=== PATIENT | female | born 1990 ===

== ENCOUNTER 2017-08-03 18:38 | Emergency (ER) | payer OTHER ==
--- NOTE | 2017-08-03 19:34 | OBHP ---
Datetime: 08/03/2017 19:28 IP Adm Impression: , intrauterine IP Admit Plan: Discharge home Admit Comment, IP Provider: @ 32.5 wks GA MARILEE 09/23/17 reports vaginal discharge watery, no odor x 3 days, no gross spurts, no odor, no itching,no ctx, lof, vb, +FM. Pt denies any dysuira, urgency, frequency, constiatoin, diarrhea. 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: denies hx of fibroids, ovairan cyst, STI PMH: siezure disorder (last seizure 2 years ago in [place]) PSH: denies MEDS: levicetraecm, pnv, folic acid SHX: negatieve x 3 NKDA VSS PE: see above EFM: Cat I TOCO: Irritablity A/P @ 32.5 wks GA with physiologic leukorrhea -if increased call me, if itching, odor: BV Rx metrogel -f/u Thrusday for US, office witin 1 week - labor precations given Pelvic Type - PN: Adequate Extremities - PN: Normal Abdomen - PN: Normal Back - PN: Normal Breast - PN: Not Done Lungs - PN: Normal Heart - PN: Normal Thyroid - PN: Not Done Neurologic - PN: Normal HEENT - PN: Normal General - PN: Normal Presentation-Admit: vtx FHR - Baseline A Provider: 135 Membranes, Provider: Intact Comments, ACOG Physical Exam: SSE: External Genitalia: no gross abnormalites Vagina; minimal white phyisiolgic discharge, no gross pooling, negative nitrazine Cervix: /-3 VTX intact Uterus; non tender, no papblet ctx Back No CVA, non tendern b/l Gestation - Est Wks by US: 32.5 IP Hx Assessment: The History has been Reviewed and is Current Vital Signs Provider: Reviewed; Within Normal Limits IP Chief Complaint: Other NICHD Variability Prov Fetus A: Moderate 6-25bpm NICHD Accel Fetus A IP Provider: 15X15 FHR Category Provider Fetus A: Category I NICHD Decel Fetus A IP Provider: None Dilatation, Provider: FT Effacement, Provider: 50 Station, Provider: -3 Genitourinary Exam: Normal DTRs - PN: Normal
[2017-08-04 00:10] VITALS: PULSE 98; O2SAT 99
== END 2017-08-03 19:45 | disposition home or self-care (01) ==
LOC: C.EROB 18:38
DX: O26.893 Other specified pregnancy related conditions, third trimester (principal); Z3A.32 32 weeks gestation of pregnancy

== ENCOUNTER 2017-09-07 21:13 | Emergency (ER) | payer OTHER ==
[2017-09-07 21:36] VITALS: BMI 28.1
[2017-09-07 22:11] LABS: RBC URINE 45 /hpf (0-3); TRANSITIONAL EPITHIAL < 1 /hpf (0-3); URINE BACTERIA MOD (<OCC); URINE BILIRUBIN NEGATIVE (NEGATIVE); URINE COLOR Yellow (YELLOW); URINE GLUCOSE (UA) NORMAL (Normal); URINE KETONE NEGATIVE (NEGATIVE); URINE LEUKOCYTE ESTERASE 1+ Leu/uL (Negative); URINE PROTEIN NEGATIVE (NEGATIVE); URINE UROBILINOGEN NORMAL mg/dL (0.2-1.0); WBC URINE 10 /hpf (0-5)
[2017-09-07 22:12] LABS: URINE BLOOD 3+ (NEGATIVE)
[2017-09-07 22:14] LABS: ALKALINE PHOSPHATASE 87 U/L (38-126); ALT/SGPT 31 U/L (9-52); AMYLASE 60 U/L (30-110); AST/SGOT 22 U/L (14-36); BILIRUBIN,TOTAL 0.8 mg/dL (0.2-1.3); BLOOD UREA NITROGEN 7 mg/dL (7-17); CALCIUM 8.1 mg/dl (8.6-10.4); CARBON DIOXIDE 23 mmol/L (22-30); CHLORIDE 104 mmol/L (98-107); GFR AFRICAN-AMERICAN > 60; GLUCOSE,RANDOM 87 mg/dL (65-105); POTASSIUM 3.8 mmol/L (3.6-5.2); SODIUM 134 mmol/L (132-148); TOTAL PROTEIN 5.9 g/dL (6.3-8.3)
[2017-09-07 22:21] LABS: ALB/GLOB RATIO 1.3 (1.0-2.1)
[2017-09-08 02:43] VITALS: BP 98/64; PULSE 80; RESP 16; TEMP 98
== END 2017-09-07 22:35 | disposition home or self-care (01) ==
LOC: C.EROB 21:13
DX: O21.2 Late vomiting of pregnancy (principal); Z3A.37 37 weeks gestation of pregnancy

== ENCOUNTER 2017-09-09 19:24 | Inpatient (IN) | payer OTHER ==
--- NOTE | 2017-09-09 20:26 | OBHP ---
Datetime: 09/09/2017 20:00 IP Adm Impression: Term, intrauterine ; Active labor; Intact Membranes IP Admit Plan: Admit to unit; Initiate labor protocol IP Admit Plan Other: cervical ripening Admit Comment, IP Provider: 26 y.o. , LMP 12/16/16, MARILEE 09/23/17, EGA 38 weeks, c/o Ctx, onset 140 0 hours, pain scale 3/10. (+) AFM; denies LOF, VB. care: Dr. Shirley, last office visit = day; noted for h/o seizure on Keppra x 3 years. 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 No h/o fibroids or abnormal pap or STIs PMH: Age 24, seizure - one event/episdoe. On meds x 3 years PSH: denies NKDA Meds: 1) Levera 500 p.o. BID; 2) iron - BID; PNV - QD. Soc Hx: denies tobacco, illicit drug or EtOH use. x 3 years. Unemployed Fam Hx: Mother alive 52 y.o. Father alive 54 y.o. - both, no med issues. No known fam h/o cancer P.E.: as above. WD in NAD. Awake, alert, oriented to time, person and place. Pleasant and paulo ative; at bedside. Assessment: 27 y.o. P0, 38 weeks, early labor; GBS (-). H/O seizures. Category 1 tracing. Clini jes stable. Plan: 1) ADmit 2) NPO 3) IVFS 4) Continuous EFM 5) Patient may take her own anti-seizure medications x 1 dose now 6) Admission labs 7) Cytotec 25 micrograms buccal x 2 doses, 4 hours apart 8) Pain management, when desired 9) Anticipate vaginal delivery - as per, and discussed with, Dr. Shirley Pelvic Type - PN: Adequate Extremities - PN: Normal Abdomen - PN: Normal Back - PN: Normal Breast - PN: Not Done Lungs - PN: Normal Heart - PN: Normal Thyroid - PN: Not Done Neurologic - PN: Normal HEENT - PN: Normal General - PN: Normal Presentation-Admit: Vertex FHR - Baseline A Provider: 140 Membranes, Provider: Intact Contraction Comments Provider: occasional Comments, ACOG Physical Exam: Abdomen: Gravid. Soft. Non tender All other systems reviewed and are negative Gestation - Est Wks by US: 38.0 IP Hx Assessment: The History has been Reviewed and is Current EGA AdmitDate IP: 38.0 Vital Signs Provider: Reviewed; Within Normal Limits IP Indication for Induction: Not Applicable IP Chief Complaint: Uterine contractions NICHD Variability Prov Fetus A: Moderate 6-25bpm NICHD Accel Fetus A IP Provider: 15X15 FHR Category Provider Fetus A: Category I NICHD Decel Fetus A IP Provider: None Dilatation, Provider: 4 Effacement, Provider: 50 Station, Provider: -3 Genitourinary Exam: Normal DTRs - PN: Not Done
[2017-09-09] MEDS ORDERED: Lactated Ringer's 1,000 ML IV SCH (20:30)
[2017-09-09 20:53] LABS: BASO % 0.4 % (0.0-2.0); EOS # 0.1 K/uL (0.0-0.7); EOS % 0.9 % (0.0-4.0); HEMATOCRIT 31.3 % (34.0-47.0); LYMPH # 1.6 K/uL (1.0-4.3); LYMPH % 20.4 % (20.0-40.0); MEAN CELL VOLUME 68.8 fL (81.0-99.0); MEAN PLATELET VOLUME 11.2 fL (7.2-11.7); MONO # 0.7 K/uL (0.0-0.8); MONO % 8.4 % (0.0-10.0); NRBC % 0.2 % (0.0-2.0); RBC URINE 11 /hpf (0-3); RED CELL DISTRIBUTION WIDTH 15.8 % (11.5-14.5); TRANSITIONAL EPITHIAL < 1 /hpf (0-3); URINE BACTERIA MANY (<OCC); URINE BILIRUBIN NEGATIVE (NEGATIVE); URINE BLOOD 2+ (NEGATIVE); URINE COLOR Yellow (YELLOW); URINE GLUCOSE (UA) NORMAL (Normal); URINE KETONE NEGATIVE (NEGATIVE); URINE LEUKOCYTE ESTERASE 3+ Leu/uL (Negative); URINE PROTEIN NEGATIVE (NEGATIVE); URINE UROBILINOGEN NORMAL mg/dL (0.2-1.0); WBC URINE 43 /hpf (0-5); WHITE BLOOD COUNT 7.8 K/uL (4.8-10.8)
[2017-09-09 21:40] LABS: ALB/GLOB RATIO 1.3 (1.0-2.1); ALKALINE PHOSPHATASE 97 U/L (38-126); ALT/SGPT 16 U/L (9-52); AST/SGOT 30 U/L (14-36); BILIRUBIN,TOTAL 0.8 mg/dL (0.2-1.3); BLOOD UREA NITROGEN 5 mg/dL (7-17); CALCIUM 8.4 mg/dl (8.6-10.4); CARBON DIOXIDE 23 mmol/L (22-30); CHLORIDE 103 mmol/L (98-107); GFR AFRICAN-AMERICAN > 60; GLUCOSE,RANDOM 73 mg/dL (65-105); POTASSIUM 3.7 mmol/L (3.6-5.2); SODIUM 131 mmol/L (132-148); TOTAL PROTEIN 6.2 g/dL (6.3-8.3)
[2017-09-10] MEDS ORDERED: Oxytocin 30 UNIT 30 UNITS/500 ML BAG IV SCH (08:00)
[2017-09-10] MEDS ORDERED: Oxytocin 30 UNIT 30 UNITS/500 ML BAG IV ONE (08:04)
[2017-09-10] MEDS ORDERED: Bupivacaine HCl/FentaNYL Cit 100 ML EPI ONE (10:10)
--- NOTE | 2017-09-10 13:47 | OBPN ---
Datetime: 09/10/2017 13:45 IP Progress Impression: Normal progression of labor IP Progress Plan: Continue present management Membranes, Provider: Ruptured FHR - Baseline A Provider: 125 Gestation - Est Wks by US: 38.1 Presentation-Admit: Vertex IP Progress Note Comment: pt seen adn examiend c/o presure, s/p epidural , dnies vb, +FM VSS E: Cat I TOOC: q 2-4 min Pitoicn 12 m/min A/P @ 38.1 wks GA in active laobr -cont current managemtn Vital Signs Provider: Reviewed FHR Category Provider Fetus A: Category I NICHD Variability Prov Fetus A: Moderate 6-25bpm Dilatation, Provider: 5 Effacement, Provider: 80 Station, Provider: -2 Datetime: 09/09/2017 20:00 Contraction Comments Provider: occasional NICHD Accel Fetus A IP Provider: 15X15 NICHD Decel Fetus A IP Provider: None
[2017-09-10] MEDS ORDERED: Bupivacaine HCl 0.25% PF (10 ml) Inj ONE (16:25)
[2017-09-10] MEDS ORDERED: Lidocaine 2% Inj (20ml) ONE (17:46)
--- NOTE | 2017-09-10 17:57 | OBPN ---
Datetime: 09/10/2017 17:33 IP Progress Impression: Normal progression of labor IP Informed Consent Obtain: Vaginal Delivery IP Progress Plan: Continue present management Membranes, Provider: Ruptured FHR - Baseline A Provider: 140 Gestation - Est Wks by US: 38.1 Presentation-Admit: Vertex IP Progress Note Comment: pt seen and examined c/o pressure VE: /+1 EMF: Cat I TOOC: q 2-4 min A/P @ 38.1 wks GA in active labor -start pushing -anticipate -cont current managment Vital Signs Provider: Reviewed FHR Category Provider Fetus A: Category I NICHD Variability Prov Fetus A: Moderate 6-25bpm Dilatation, Provider: 10 Effacement, Provider: 100 Station, Provider: 1 NICHD Decel Fetus A IP Provider: None
[2017-09-10] MEDS ORDERED: Benzocaine/Menthol 20%-0.5% Topical Spray (60 ml) TOP PRN (18:29)
[2017-09-10] MEDS ORDERED: Oxycodone/Acetaminophen 5/325 mg Tab PO PRN (18:29)
--- NOTE | 2017-09-10 18:48 | OBDS ---
DELIVERY PERSONNEL Nurse Welfare Worker Certified: N/A Delivery Doctor: Aleksey Shirley MD Scrub Nurse: N/A Snuff Grinder And Screener: Selina Sparrow RN Anesthesiologist: Pablo Warner MD Job Estimator: N/A Resident: N/A MATERNAL INFORMATION Delivery Anesthesia: Epidural Medications in Delivery: 2% Lidocaine Estimated Blood Loss (ml): 400 Placenta Cultured: No Maternal Complications: None RN Comments: Leanna Parks DO (PGY 1); Radha Nolan DO (PGY - 1); and Adam Amezcua (Medical Student) present in room. Wilian Price RN (Nursery RN) Provider Comments: pt was fully dilated and pushing. Atruamtic, spontaneous delivery of head, no nuc quique cord noted, atrumatic, spontaneous delivery of anteror followed by posterior shoulder followed by delivery of the body. both oral and nasal passages of the baby were bulb suctioned. Umbilical cord c almped and cut. baby handed to mother on abdomen with rn assistance. Cord blood collected nda sent x 2. Spontaneous delivery of intact placenta with membrnes. fundus firm. Good hemostaiss. Second degree preineal laceartion noted and repaired with 2-0 and 3-[address]. Live fremlae ifant apgars 9,9 weight of 5lbs 13 ounces ebl 400 ml no complcatins LABOR SUMMARY EDC: 09/23/2017 00:00 No. Babies in Womb: 1 Attempted: No Labor Anesthesia: Epidural LABOR INFORMATION Reason for Induction: Not Applicable Reason for Induction Other: N/A Onset of Labor: 09/09/2017 14:00 Complete Dilatation: 09/10/2017 17:25 Cervical Ripening Agents: Cytotec @ (Annotations: 25mcg PO) Other Ripening Agents: N/A Oxytocin: Augmentation Group B Beta Strep: Negative Antibiotics # of Doses: N/A Antibiotics Time of Last Dose: N/A Steroids Given: None Reason Steroids Not Administered: Not Applicable Other Reason Not Administered: N/A MEMBRANES Membranes Rupture Method: Artificial Rupture of Membranes: 09/10/2017 07:48 Length of Rupture (hrs): 10.58 Amniotic Fluid Color: Clear Amniotic Fluid Amount: Small Amniotic Fluid Odor: Normal STAGES OF LABOR Stage 1 hrs: 27 Stage 1 min: 25 Stage 2 hrs: 0 Stage 2 min: 58 Stage 3 hrs: 0 Stage 3 min: 5 Total Time in Labor hrs: 28 Total Time in Labor min: 28 VAGINAL DELIVERY Episiotomy: None Laceration Extension: Second Degree Laceration Type: Perineal Other Laceration: N/A Laceration Repair: Yes Initial Vag Sponge Count: 11 Final Vag Sponge Count: 11 Initial Vag Sharps Count: 2 Final Vag Sharps Count: 2 Sponge Count Correct: Yes; Vaginal Sweep Performed Sharps Count Correct: Yes BABY A INFORMATION Delivery Date/Time: 09/10/2017 18:23 Method of Delivery: Vaginal Born in Route : No : N/A Forceps: N/A Vacuum Extraction: N/A Shoulder Dystocia : No SHOULDER DYSTOCIA BABY A Infant Delivery Date/Time: 09/10/2017 18:23 PRESENTATION/POSITION BABY A Presentation: Cephalic Cephalic Presentation: Vertex Vertex Position: Left Occipital Anterior Breech Presentation: N/A PLACENTA INFORMATION BABY A Placenta Delivery Time : 09/10/2017 18:28 Placenta Method of Delivery: Spontaneous Placenta Status: Delivered SCORES BABY A Heart Rate 1 min: >100 bpm Resp Effort 1 min: Good Cry Reflex Irritability 1 min: Cough or Sneeze or Pulls Away Muscle Tone 1 min: Active Motion Color 1 min: Body [place], Extremities Blue Resuscitation Effort 1 min: Tactile Stimulation SCORE 1 MIN: 9 Heart Rate 5 min: >100 bpm Resp Effort 5 min: Good Cry Reflex Irritability 5 min: Cough or Sneeze or Pulls Away Muscle Tone 5 min: Active Motion Color 5 min: Body [place], Extremities Blue Resuscitation Effort 5 min: Tactile Stimulation SCORE 5 MIN: 9 INFANT INFORMATION BABY A Gestational Age at Delivery: 38.1 Gestational Status: Term Outcome : Liveborn Condition : Stable Infant Sex: Female IDENTIFICATION/MEDS BABY A ID Band Number: [id number] ID Band Location: Left Leg; Left Arm Sensor Applied: Yes Sensor Number: [id number] Sensor Location : Cord Clamp WEIGHT/LENGTH BABY A Infant Birthweight (gms): 2650 Infant Weight (lb): 5 Weight (oz): 13 Length Inches: 18.50 Infant Length cms: 47.0 CORD INFORMATION BABY A No. Cord Vessels: 3 Nuchal Cord : N/A Nuchal Cord Other: N/A True Knot: N/A Cord pH Baby Arterial: N/A Cord pH Baby Venous: N/A Cord Blood Taken: Yes Banking/Donate Info: N/A Suction: Mouth; Nose ASSESSMENT BABY A Complications: Multiple Variable Decels Physical Findings at Delivery: Within Normal Limits Infant Respirations: Appears Normal Spreading Machine Operator/ALS Called : No Infant Care By: Wilian Price RN Transferred To: Remains with Mother
--- NOTE | 2017-09-11 07:23 | OBPPN ---
Datetime: 09/11/2017 07:16 PP Pain Prov: Within normal limits PP Nausea Prov: Denies PP Flatus Prov: Yes PP BM Prov: No PP Breasts Prov: Normal PP Heart Prov: Normal PP Lungs Prov: Normal PP Abdomen/Uterus Prov: Normal PP Lochia Prov: Normal PP Vulva/Perineum Prov: Normal PP CVA Tenderness Prov: Normal PP Extremities Prov: Normal PP C/S Incision Prov: Not Applicable PP Progress Prov: Normal PP Impression Prov: Normal progression PP Plan Prov: Continue present management PP Progress Note Prov: pt seen and examied and reports controlled with medicaion. pt reports ambulat ing, voiding, passing flatus, brest feeding, denies any fever, chills, naseu, vomiting, cp, sob VSS PE: GEN: NAD AA ox 3 BREAST: Nt, non engorged b/l CVS: RRR, +S1/S2 RESP: CTab/l ABD: soft, NT, ND, no guarding, no reboud tendnerss, no rgidity FUDUS: FIrm, below levle of umbilcs V: Minimal lochia non foul smelling EXT: non calf tendenrss, negative edema A/P s/p PPD #1 doing well with seizure disorder -f/u consultation re: keppra -f/u cbc -pain manamgnet -encourage breast feedign adn ambuation IP PP Procedures: None Vital Signs Provider PP: Reviewed; Within Normal Limits
[2017-09-11 08:14] LABS: BASO % 0.4 % (0.0-2.0); EOS # 0.1 K/uL (0.0-0.7); LYMPH # 1.7 K/uL (1.0-4.3); LYMPH % 16.4 % (20.0-40.0); MONO # 0.7 K/uL (0.0-0.8); WHITE BLOOD COUNT 10.2 K/uL (4.8-10.8)
[2017-09-11 08:26] LABS: EOS % 0.9 % (0.0-4.0); HEMATOCRIT 27.5 % (34.0-47.0); MEAN CELL VOLUME 68.1 fL (81.0-99.0); MEAN CORPUSCULAR HEMOGLOBIN 22.5 pg (27.0-31.0); MEAN PLATELET VOLUME 11.5 fL (7.2-11.7); MONO % 7.3 % (0.0-10.0); NRBC % 0.3 % (0.0-2.0); RED CELL DISTRIBUTION WIDTH 15.7 % (11.5-14.5)
[2017-09-11 16:10] VITALS: O2SAT 99
--- NOTE | 2017-09-12 08:10 | OBDCSUM ---
Datetime: 09/12/2017 08:08 Discharged to, Provider: Home Follow up at, Provider: Dr Shirley Disch Instr Activity: Normal activity Disch Instr Diet: Regular Discharge Instructions, Provider: Routine instructions given Discharge Diagnosis, Provider: Term Delivered Discharge Time: 09/12/2017 08:08 Follow up in weeks, Provider: 6 weeks Disch Referrals: None Contraception discussed, Prov: Yes Disch Activity Restrictions: No sexual activity; Nothing in vagina - Deweese, tampons, douche Contraception after Delivery: Not Planning to Use
--- NOTE | 2017-09-12 08:10 | OBPPN ---
Datetime: 09/12/2017 08:07 PP Pain Prov: Within normal limits PP Nausea Prov: Denies PP Flatus Prov: Yes PP BM Prov: Yes PP Breasts Prov: Normal PP Heart Prov: Normal PP Lungs Prov: Normal PP Abdomen/Uterus Prov: Normal PP Lochia Prov: Normal PP Vulva/Perineum Prov: Normal PP CVA Tenderness Prov: Normal PP Extremities Prov: Normal PP C/S Incision Prov: Not Applicable PP Progress Prov: Normal PP Impression Prov: Normal progression PP Plan Prov: Continue present management PP Progress Note Prov: pt seen and examined and reports pain controlled with medicaion. pt is ambuat ing, voiding, passing flatus, toleratign regular, diet breast feeding. VSS PE: GEN: NAD, AAO x 3 CTAB/l : Ctab/l CVS: RRR, +S1/S2 ABD: soft, NT, ND, no guarding no rebound tenderness, no rigidity FUNDUS: FIrm, below level of umbilicus VE: minimal lochia, non foul smelling, laceration site healing well EXT: no calf tenderness, negative rafi's sign A/P S/p PPD #2 dc home today rto 6 weeks IP PP Procedures: None Vital Signs Provider PP: Reviewed; Within Normal Limits
[2017-09-12 08:15] VITALS: BP 110/69; PULSE 88; RESP 18; TEMP 97
[2017-09-12] MEDS ORDERED: Influenza Vaccine 60 mcg/0.5 mL SYR (4YR UP) IM ONE (18:19)
--- NOTE | 2017-09-15 17:46 | OBHP ---
Datetime: 09/10/2017 17:33 Presentation-Admit: Vertex FHR - Baseline A Provider: 140 Membranes, Provider: Ruptured Gestation - Est Wks by US: 38.1 Vital Signs Provider: Reviewed NICHD Variability Prov Fetus A: Moderate 6-25bpm FHR Category Provider Fetus A: Category I NICHD Decel Fetus A IP Provider: None Dilatation, Provider: 10 Effacement, Provider: 100 Station, Provider: 1 Datetime: 09/09/2017 20:00 Admit Comment, IP Provider: 26 y.o. , LMP 12/16/16, MARILEE 09/23/17, EGA 38 weeks, c/o Ctx, onset 140 0 hours, pain scale 3/10. (+) AFM; denies LOF, VB. care: Dr. Shirley, last office visit = to day; noted for h/o seizure on Keppra x 3 years. 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 No h/o fibroids or abnormal pap or STIs PMH: Age 24, seizure - one event/episdoe. On meds x 3 years PSH: denies NKDA Meds: 1) Levera 500 p.o. BID; 2) iron - BID; PNV - QD. Soc Hx: denies tobacco, illicit drug or EtOH use. x 3 years. Unemployed Fam Hx: Mother alive 52 y.o. Father alive 54 y.o. - both, no med issues. No known fam h/o cancer P.E.: as above. WD in NAD. Awake, alert, oriented to time, person and place. Pleasant and paulo ative; at bedside. Assessment: 27 y.o. P0, 38 weeks, early labor; GBS (-). H/O seizures. Category 1 tracing. Clini jes stable. Plan: 1) ADmit 2) NPO 3) IVFS 4) Continuous EFM 5) Patient may take her own anti-seizure medications x 1 dose now 6) Admission labs 7) Cytotec 25 micrograms buccal x 2 doses, 4 hours apart 8) Pain management, when desired 9) Anticipate vaginal delivery - as per, and discussed with, Dr. Shirley agree with above admit tpt for labor pain managament johnyn Quita CASTILLO AdmitDate IP: 38.0
== END 2017-09-12 13:15 | disposition home or self-care (01) | DRG 775 ==
LOC: C.EROB 19:24 → C.4D 19:48 → UNDOADMIN 19:48 → C.4D 20:18 → C.4M 09-10 20:46
PROVIDERS: ADMIT Obstetrics & Gynecology; ATTEND Obstetrics & Gynecology
PROC: 10E0XZZ Delivery of Products of Conception, External Approach (ICD-10-PCS; principal; 2017-09-10)
PROC: 0KQM0ZZ Repair Perineum Muscle, Open Approach (ICD-10-PCS; 2017-09-10)
DX: O70.1 Second degree perineal laceration during delivery (principal); Z37.0 Single live birth; O99.354 Diseases of the nervous system complicating childbirth; Z3A.38 38 weeks gestation of pregnancy